=== PATIENT | female | born 1980 | race Caucasian/White ===

== ENCOUNTER 2018-08-10 08:04 | Emergency (ER) | payer OTHER ==
[~2018-08-10] VITALS: Ht 152.4 cm; Wt 78.5 kg
[2018-08-10 09:08] LABS: BASO % 0 % (0-3); EOS # 0.1 x10^3/uL (0.0-0.7); EOS % 2 % (0-3); HEMATOCRIT 31.1 % (36.0-47.0); HEMOGLOBIN 10.8 g/dL (12.0-15.5); LYMPH # 2.1 x10^3/uL (1.0-4.8); LYMPH % 34 % (24-48); MEAN CORPUSCULAR HEMOGLOBIN 31 pg (25-35); MEAN CORPUSCULAR HGB CONC 35 g/dL (31-37); MEAN CORPUSCULAR VOLUME 87 fL (79-100); MONO # 0.3 x10^3/uL (0.0-1.1); MONO % 5 % (0-9); NEUT # 3.7 x10^3uL (1.8-7.7); NEUT % 59 % (31-73); PLATELET COUNT 208 x10^3/uL (140-400); RED BLOOD COUNT 3.55 x10^6/uL (3.50-5.40); RED CELL DISTRIBUTION WIDTH 13.5 % (11.5-14.5); WHITE BLOOD COUNT 6.2 x10^3/uL (4.0-11.0)
[2018-08-10 09:17] LABS: CALCIUM 8.2 mg/dL (8.5-10.1); CREATININE 0.7 mg/dL (0.6-1.0); GFR 93.2; POTASSIUM 3.6 mmol/L (3.5-5.1)
--- NOTE | 2018-08-10 09:24 | PHYS DOC ---
Adult General Chief Complaint Chief Complaint: VAGINAL BLEEDING HPI HPI Patient is a 38 year old female who presents with complaining of vaginal bleeding during . Patient is A5 at 16 weeks of gestation complaining of vaginal bleeding with lower abdominal cramping since this morning. After she passed bright red blood with some clots this morning and complaining of cramping abdominal pain getting better. Patient denies recent intercourse, shortness of breath, palpitations, dizziness. Patient did not start EMERGENCY DEPT TECH care and states she has A negative blood type and had RhoGam with her previous miscarriage or deliveries. Review of Systems Review of Systems Constitutional: Denies fever or chills [] Eyes: Denies change in visual acuity, redness, or eye pain [] HENT: Denies nasal congestion or sore throat [] Respiratory: Denies cough or shortness of breath [] Cardiovascular: No additional information not addressed in HPI [] GI: Reports abdominal pain, denies nausea, vomiting, bloody stools or diarrhea [ ] : Denies dysuria or hematuria , reports vaginal bleeding[] Musculoskeletal: Denies back pain or joint pain [] Integument: Denies rash or skin lesions [] Neurologic: Denies headache, focal weakness or sensory changes [] Endocrine: Denies polyuria or polydipsia [] All other systems were reviewed and found to be within normal limits, except as documented in this note. Physical Exam Physical Exam Constitutional: Well developed, well nourished, mild distress, non-toxic appearance. [] HENT: Normocephalic, atraumatic Eyes: PERRLA, EOMI, conjunctiva normal, no discharge. [] Neck: Normal range of motion, no tenderness, supple, no stridor. [] Cardiovascular:Heart rate regular rhythm, no murmur [] Lungs & Thorax: Bilateral breath sounds clear to auscultation [] Abdomen: Bowel sounds normal, soft, no tenderness, no masses, no pulsatile masses. 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 Skin: Warm, dry, no erythema, no rash. [] Back: No tenderness, no CVA tenderness. [] Extremities: No tenderness, no cyanosis, no clubbing, ROM intact, no edema. [] Neurologic: Alert and oriented X 3, normal motor function, normal sensory function, no focal deficits noted. [] Psychologic: Affect normal, judgement normal, mood normal. [] Current Patient Data Lab Results Laboratory Tests Test 08/10/18 08:47 White Blood Count 6.2 x10^3/uL (4.0-11.0) Red Blood Count 3.55 x10^6/uL (3.50-5.40) Hemoglobin 10.8 g/dL (12.0-15.5) L Hematocrit 31.1 % (36.0-47.0) L Mean Corpuscular Volume 87 fL (79-100) Mean Corpuscular Hemoglobin 31 pg (25-35) Mean Corpuscular Hemoglobin Concent 35 g/dL (31-37) Red Cell Distribution Width 13.5 % (11.5-14.5) Platelet Count 208 x10^3/uL (140-400) Neutrophils (%) (Auto) 59 % (31-73) Lymphocytes (%) (Auto) 34 % (24-48) Monocytes (%) (Auto) 5 % (0-9) Eosinophils (%) (Auto) 2 % (0-3) Basophils (%) (Auto) 0 % (0-3) Neutrophils # (Auto) 3.7 x10^3uL (1.8-7.7) Lymphocytes # (Auto) 2.1 x10^3/uL (1.0-4.8) Monocytes # (Auto) 0.3 x10^3/uL (0.0-1.1) Eosinophils # (Auto) 0.1 x10^3/uL (0.0-0.7) Basophils # (Auto) 0.0 x10^3/uL (0.0-0.2) EKG EKG [] Radiology/Procedures Radiology/Procedures [address] [address] IMAGING REPORT Signed PATIENT: SCOTT PEGUERO ACCOUNT: [id number] : 1980 LOCATION: ER AGE: 38 SEX: F EXAM STATUS: REG ER ORD. PHYSICIAN: ORTIZ HARVEY MD REASON: vaginal bleeding in PROCEDURE: OB <14 WKS OB ULTRASOUND, > 14 WEEKS Clinical Indication: Cramping, heavy bleeding. Comparison: None. Technique: Multiple grayscale images, color Doppler, and M-mode images of the uterus are obtained. Findings: There is malpositioned gestational sac at the endocervical junction. The placenta is posterior in location. The amount of amniotic fluid appears appropriate. There is fluid collection in between the uterus along the gestational sac measuring 2.5 x 4.9 cm. Fluid collection could be due to hemorrhage. Biometrical data: BPD = 2.9 cm for 15 weeks 1 days. HC = 11.1 cm for 15 weeks 3 days. AC = 9.8 cm for 15 weeks 6 days. FL = 1.6 cm for 14 weeks 5 days. HC/AC ratio = 1.14. Overall, the estimated sonographic gestational age is 15 weeks and 2 days for an estimated date of delivery of January 30, 2019. Estimated weight is 120 +/- 18 grams. The estimated heart rate is 175 beats per minute. A anatomic survey is not performed due to early gestational age. The right maternal ovary is normal. The left maternal ovary is not identified due to overlying bowel gas. IMPRESSION: 1. Malpositioned gestational sac at the endocervical junction or bulging into the vagina. 2. Single gestation, currently live with estimated sonographic gestational age of 15 weeks and 2 days. 3. Fluid collection between the uterine wall and the gestational sac may be due to hemorrhage. Electronically signed by: Joshua Hancock MD (08/10/2018 11:32 AM) [id number] DICTATED AND SIGNED BY: JOSHUA HANCOCK MD DATE: 08/10/18 1132 CC: ROXANN LOPEZ MD; ORTIZ HARVEY MD ~ Course & Med Decision Making Course & Med Decision Making Pertinent Labs and Imaging studies reviewed. (See chart for details) Evaluation of patient in ER showed 38-year-old female patient at 16 weeks of gestation with vaginal bleeding since this morning. Patient had moderate amount of blood and gestational sac in vagina. Patient did not have tachycardia. On- call EMERGENCY DEPT TECH doctor. He was consulted at 1008 and recommended to send patient to [facility] with sirene on. She hasn't had a stable vital signs in ER. Patient had blood type A- and Rho Alesia was hold per recommendation of on-call OB/ CIRCULATOR for postponing after D&C in [facility]. Dragon Disclaimer Dragon Disclaimer This electronic medical record was generated, in whole or in part, using a voice recognition dictation system. Departure Departure: Impression: Primary Impression: Inevitable spontaneous Disposition: XFER SHT-TRM HOSP ([facility] at 1009) Condition: GUARDED Referrals: ROXANN LOPEZ MD (PCP) ORTIZ HARVEY MD Aug 10, 2018 09:24
[2018-08-10] MEDS ORDERED: IV NORMAL SALINE 1,000ML 1,000 ML IV ONE (09:45)
--- NOTE | 2018-08-10 11:35 | RAD ---
OB ULTRASOUND, > 14 WEEKS Clinical Indication: Cramping, heavy bleeding. Comparison: None. Technique: Multiple grayscale images, color Doppler, and M-mode images of the uterus are obtained. Findings: There is malpositioned gestational sac at the endocervical junction. The placenta is posterior in location. The amount of amniotic fluid appears appropriate. There is fluid collection in between the uterus along the gestational sac measuring 2.5 x 4.9 cm. Fluid collection could be due to hemorrhage. Biometrical data: BPD = 2.9 cm for 15 weeks 1 days. HC = 11.1 cm for 15 weeks 3 days. AC = 9.8 cm for 15 weeks 6 days. FL = 1.6 cm for 14 weeks 5 days. HC/AC ratio = 1.14. Overall, the estimated sonographic gestational age is 15 weeks and 2 days for an estimated date of delivery of January 30, 2019. Estimated weight is 120 +/- 18 grams. The estimated heart rate is 175 beats per minute. A anatomic survey is not performed due to early gestational age. The right maternal ovary is normal. The left maternal ovary is not identified due to overlying bowel gas. IMPRESSION: 1. Malpositioned gestational sac at the endocervical junction or bulging into the vagina. 2. Single gestation, currently live with estimated sonographic gestational age of 15 weeks and 2 days. 3. Fluid collection between the uterine wall and the gestational sac may be due to hemorrhage. Electronically signed by: Joshua Hancock MD (08/10/2018 11:32 AM) [id number]
[2018-08-10 11:50] VITALS: BP 94/38
== END 2018-08-10 12:55 | disposition short-term general hospital (02) ==
LOC: ER 08:04
DX: O03.9 Complete or unspecified spontaneous abortion without complication (principal)
CPT/HCPCS: 36415; 76801; 80048; 84702; 85025; 86850; 86900; 86901; 96374; 96376; 99285; J3010; J7030